=== PATIENT | female | born 1945 | race Hispanic/Latino ===

== ENCOUNTER 2024-09-17 21:44 | Emergency (ER) | payer OTHER ==
[2024-09-17] MEDS ORDERED: FAMOTIDINE 20 MG/2 ML VIAL IV ONE (22:25)
[2024-09-17] MEDS ORDERED: NA CHLORIDE 0.9% 500 ML ONE (22:25)
[2024-09-17 23:03] LABS: Absolute Monocytes 0.5 K/uL (0.1-1.3); Basophils % 0.2 % (0-1.3); Eosinophils % 0.2 % (0-4.4); Hematocrit 33.7 % (36.0-45.0); Hemoglobin 11.2 g/dL (12.0-15.0); Lymphocytes % 11.3 % (15.3-44.8); MCH 28.3 pg (27.0-35.0); MCHC 33.3 g/dL (32.0-36.0); MPV 9.4 fL (7.6-11.3); Monocytes % 6.3 % (3.3-12.3); Nucleated Red Blood Cells % 0.1 % (0-0); Platelets 379 thou/uL (152-406); RBC Red Blood Cell Count 3.96 M/uL (3.86-4.86); Red Cell Distribution Width 19.5 % (12.1-15.2)
--- NOTE | 2024-09-17 23:12 | RAD REPORT ---
EXAM: CT CHEST, ABDOMEN AND PELVIS WITHOUT CONTRAST CLINICAL INDICATION: Female, 79 years old. [facility] MAIN ABDOMINAL DISTENTION Bed Name: 13 TECHNIQUE: CT chest, abdomen and pelvis was performed, without IV contrast, as per department protoco l. Axial, sagittal and coronal reconstructions were obtained. One or more of the following dose reduction techniques were used: Automated exposure control, adjustment of the mA and/or kV according to the patient size, and/or iterative reconstruction. Unless otherwise specified, incidental findings do not require dedicated imaging follow-up. COMPARISON: No prior exam. FINDINGS: The lack of intravenous contrast limits the sensitivity of this exam for evaluation of solid visceral organs, vascular structures, and retroperitoneum. Chest: LOWER NECK/CHEST WALL: Visualized thyroid gland and soft tissues are normal. LUNGS AND AIRWAYS: Airways are clear. Dependent right basilar airspace opacification with air broncho grams. Subsegmental atelectasis at the left base with volume loss. PLEURA: Layering bilateral small effusions larger on the right. No pneumothorax. Hemidiaphragms are n ormally positioned. MEDIASTINUM AND LYMPH NODES: No mediastinal mass or fluid collection. Mildly prominent mediastinal ly mph nodes largest is pretracheal measuring 1.3 cm in short axis, nonspecific, and could be reactive. No bulky hilar adenopathy within limits of noncontrast evaluation. THORACIC AORTA: Normal caliber and configuration. PULMONARY ARTERIES: Normal caliber. HEART: Unremarkable. Abdomen/Pelvis LIVER: Normal in size and contour. No focal lesion. GALLBLADDER/BILE DUCTS: Status post cholecystectomy. PANCREAS: No mass, ductal dilation, or manfred-pancreatic fluid. SPLEEN: Normal size. No focal lesion. ADRENALS: Normal; no mass. KIDNEYS AND URETERS: Normal size and contour. No hydronephrosis. Nonobstructing bilateral lower pole calculi largest on the right measuring 4 mm. 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 Sequelae of midline laparotomy. Stomach is non-dilated. Small bowel dilation with air-fluid levels, with suspected transition point in the right lower quadrant, se e coronal image 44 series 303. Distal colonic diverticulosis with no colonic wall thickening or pericolonic inflammatory changes. PERITONEUM: No free fluid. Mild nonspecific mesenteric edema. LYMPH NODES: No lymphadenopathy. ABDOMINAL AORTA AND OTHER VESSELS: Normal caliber aorta and IVC. URINARY BLADDER: Normal contour. REPRODUCTIVE ORGANS: No pathologic process. MUSCULOSKELETAL: No acute or suspicious osseous abnormality. ADDITIONAL FINDINGS: Lobulated cystic lesion along the subcutaneous soft tissues of the upper back, m easuring 9.3 cm in greatest transverse dimension and 3.6 cm in thickness, could represent sebaceous cyst or seroma IMPRESSION: Segmental dilation of central abdominal small bowel with suspected transition point in the right lowe r quadrant, could relate to low-grade obstruction. Sequelae of midline laparotomy, with terminal colostomy and mucous fistula. Nonobstructing bilateral renal calculi largest measuring 4 mm. Bilateral pleural effusions larger on the right, with underlying right lower lobe airspace opacificat ion, favoring atelectasis, however superimposed pneumonia be difficult to exclude. Other incidental findings as above.
--- NOTE | 2024-09-17 23:14 | RAD REPORT ---
EXAM: CT Head Brain Wo Cont HISTORY: confusion COMPARISON: None TECHNIQUE: Multiple contiguous axial images were obtained for a CT of the brain without contrast. Sag ittal and coronal reformats were performed. One or more of the following dose reduction techniques were used: Automated exposure control, adjus tment of the mA and kV according to patient size, and iterative reconstruction. Unless otherwise specified, incidental findings do not require dedicated imaging follow-up. FINDINGS: No evidence of hydrocephalus, intracranial hemorrhage, or extra-axial fluid collection. Regions of encephalomalacia in the right anterior frontal, left temporoparietal, right anterior tempo ral pole, and right high parietal cortices with volume loss, favoring sequelae of remote ischemia. Other moderate periventricular and deep white matter chronic microvascular ischemic changes present. The calvarium is intact. The visualized paranasal sinuses and mastoid air cells are essentially clear . IMPRESSION: No evidence of acute intracranial abnormality. Multifocal encephalomalacia throughout the supratentorial series, favoring sequelae of remote ischemi a.
--- NOTE | 2024-09-17 23:15 | RAD REPORT ---
EXAMINATION: ONE VIEW CHEST XR CLINICAL INDICATION: Female, 79 years old.,AMS TECHNIQUE: Frontal chest projection is submitted. Examination is limited by patient positioning and t echnique. COMPARISON: No prior exam. FINDINGS: Bibasilar pleuroparenchymal opacities. No pneumothorax. The heart is normal in size. Mediastinal con tours are unremarkable. IMPRESSION: Bibasilar pleuroparenchymal opacities. Underlying pneumonia should be considered.
[2024-09-18 00:59] LABS: Albumin 2.1 g/dL (3.4-5.0); Albumin/Globulin Ratio 0.5 (1.1-1.8); Anion Gap 7.8 mEq/L (5.0-15.0); Bilirubin Total 0.5 mg/dL (0.2-1.0); Globulin 4.2 g/dL (2.3-3.5); Potassium 3.8 mEq/L (3.5-5.1); Protein, Total 6.3 g/dL (6.4-8.2); Thyroid Stimulating Hormone 0.933 uIU/mL (0.358-3.740)
--- NOTE | 2024-09-18 02:11 | ER ---
Nurse's Notes [facility] Name: Damaris Antoine Age: 79 yrs Sex: Female : 1945 Arrival Date: 09/17/2024 Time: 21:44 Bed 13 Private MD: Diagnosis: Partial small bowel obstruction, postoperative complication, divergent colostomy complication, moderate dehydration, acute on chronic renal insufficiency Presentation: 09/17 21:45 Chief complaint: EMS states: leaking colostomy bag, home health nurse has try changing ha1 it multiple times but it is still leaking. 21:45 Coronavirus screen: Client denies travel out of the [place] in the last 14 days. Ebola ha1 Screen: No symptoms or risks identified at this time. Initial Sepsis Screen: Does the patient meet any 2 criteria? No. Patient's initial sepsis screen is negative. Does the patient have a suspected source of infection? No. Patient's initial sepsis screen is negative. Risk Assessment: Do you want to hurt yourself or someone else? Patient reports no desire to harm self or others. Onset of symptoms was September 17, 2024. 21:45 Method Of Arrival: EMS: [facility] ha1 21:45 Acuity: BRITNEY 3 ha1 Historical: - Allergies: 21:45 Morphine; ha1 21:45 Codeine; ha1 21:45 Iodine; ha1 21:45 Aspirin; ha1 - PMHx: 21:45 Congestive heart failure; Atrial fibrillation; Chronic obstructive lung disease; ha1 Anemia; uterine cancer; - PSHx: 21:45 Colostomy (September 07, 2024); ha1 - Immunization history:: Adult Immunizations up to date. - Infectious Disease History:: Denies. - Social history:: Smoking status: Patient/guardian denies using tobacco, Stopped _ months ago 4. - Family history:: not pertinent. Screenin/15 01:58 [facility] ED Fall Risk Assessment (Adult) History of falling in the last 3 months, jb4 including since admission No falls in past 3 months (0 pts) Confusion or Disorientation No (0 pts) Intoxicated or Sedated No (0 pts) Impaired Gait Yes (1 pt) Mobility Assist Device Used Yes (1 pt) Altered Elimination Yes (1 pt) Score/Fall Risk Level 3 or more points = High Risk Oriented to surroundings, Maintained a safe environment. Abuse screen: Denies threats or abuse. Nutritional screening: No deficits noted. Tuberculosis screening: No symptoms or risk factors identified. Assessment: 09/17 22:30 General: Appears in no apparent distress. comfortable, Behavior is calm, cooperative, jb4 appropriate for age. Pain: Complains of pain in abdomen Pain does not radiate. Pain currently is 8 out of 10 on a pain scale. Neuro: Level of Consciousness is awake, alert, obeys commands, Oriented to person, place, time, situation. Cardiovascular: Patient's skin is warm and dry. Respiratory: Airway is patent Respiratory effort is even, unlabored, Respiratory pattern is regular, symmetrical. GI: Abdomen is distended, obese, Colostomy site is reddened. Ostomy appliance is not intact. Abd is soft and non tender X 4 quads. surgical site appears intact with no s/s of infection noted. Derm: Skin is intact, Skin is pink, warm \T\ dry. Musculoskeletal: Circulation, motion, and sensation intact. Range of motion: intact in all extremities. 23:30 Reassessment: Patient appears in no apparent distress at this time. Patient and/or jb4 family updated on plan of care and expected duration. Pain level reassessed. Patient is alert, oriented x 3, equal unlabored respirations, skin warm/dry/pink. 09/18 00:28 Reassessment: Patient appears in no apparent distress at this time. Patient and/or jb4 family updated on plan of care and expected duration. Pain level reassessed. Patient is alert, oriented x 3, equal unlabored respirations, skin warm/dry/pink. 00:40 Reassessment: given ice chips per ER physicians request. jb4 01:52 Reassessment: Patient appears in no apparent distress at this time. Patient and/or jb4 family updated on plan of care and expected duration. Pain level reassessed. Patient is alert, oriented x 3, equal unlabored respirations, skin warm/dry/pink. colostomy appliance replaced, pt had pulled off prior appliance. 03:00 Reassessment: Patient appears in no apparent distress at this time. Patient and/or jb4 family updated on plan of care and expected duration. Pain level reassessed. Patient is alert, oriented x 3, equal unlabored respirations, skin warm/dry/pink. Colostomy remains in place. Vital Signs: 09/17 21:45 BP 140 / 84; Pulse 85; Resp 17 S; Temp 98.1(O); Pulse Ox 99% on 2 lpm NC; Weight 63.5 ha1 kg; Height 5 ft. 0 in. ; 23:22 BP 117 / 92; Pulse 71; Resp 16; Pulse Ox 100% on R/A; jb4 09/18 00:28 BP 102 / 50; Pulse 89; Resp 17; Pulse Ox 100% on R/A; jb4 01:52 BP 112 / 56; Pulse 89; Resp 16; Pulse Ox 95% on 2 lpm NC; jb4 03:00 BP 99 / 63; Pulse 101; Resp 20; Pulse Ox 99% on R/A; jb4 09/17 21:45 Body Mass Index 27.34 (63.50 kg, 152.4 cm) ha1 Shayna Coma Score: 00:43 Eye Response: spontaneous(4). Motor Response: obeys commands(6). Verbal Response: sp4 oriented(5). Total: 15. ED Course: 09/17 21:45 Patient arrived in ED. jj6 21:59 Pasquale Alcazar MD is Attending Physician. sp4 22:02 Triage completed. ha1 22:19 CT Head Brain wo Cont In Process Unspecified. EDMS 22:19 CT Chest Abdomen Pelvis W/O Contrast In Process Unspecified. EDMS 22:29 Chest Single View XRAY In Process Unspecified. EDMS 22:43 Initial lab(s) drawn, by ut, sent to lab. Inserted saline lock: 20 gauge in left rk3 antecubital area, using aseptic technique. Blood collected. Flushed with 10 mL NS. 09/18 00:45 INITIATED TRANSFER WITH MARVEL MERLOS \T\ 0045. [facility] 01:58 Patient has correct armband on for positive identification. Bed in low position. Call jb4 light in reach. Side rails up X 1. Provided Education on: plan of care. 02:00 PT WAS ACCEPTED BY DR. CHEN \T\ 0200. PT WILL GO TO THE ER AT [facility]. [facility] TO TRANSFER PT ONCE NURSE TO NURSE IS COMPLETE. NUMBER FOR NURSE TO NURSE REPORT [phone]. 03:00 No provider procedures requiring assistance completed. Patient transferred, IV remains jb4 in place. Administered Medications: 09/17 23:01 Drug: Famotidine IVP 20 mg IVP once; dilute with 10 mL 0.9% NaCl; give over 2 minutes jb4 Route: IVP; Site: right antecubital; 23:30 Follow up: Response: No adverse reaction jb4 23:01 Drug: NS 0.9% IV 500 ml 500 ml IV at 1 bolus once; to be given as a bolus over 30 jb4 minutes Volume: 500 ml; Route: IV; Rate: 1 bolus; Site: right antecubital; 23:31 Follow up: Response: No adverse reaction; IV Status: Completed infusion; IV Intake: jb4 500ml 09/18 02:33 Drug: Ativan IVP 1 mg IVP once Route: IVP; Site: right antecubital; jb4 03:12 Follow up: Response: No adverse reaction; Marked relief of symptoms jb4 02:33 Drug: Rocephin - Rocephin (cefTRIAXone) IVPB 1 grams IVPB once over 30 mins; (mix in 50 jb4 mL NS) Route: IVPB; Infused Over: 30 mins; Site: right antecubital; 03:03 Follow up: Response: No adverse reaction; IV Status: Completed infusion; IV Intake: [id number] 02:38 Drug: metroNIDAZOLE IVPB 500 mg 100 ml IVPB at 200 ml/hr once over 30 mins Volume: 100 jb4 ml; Route: IVPB; Rate: 200 ml/hr; Infused Over: 30 mins; Site: right antecubital; 03:08 Follow up: Response: No adverse reaction; IV Status: Completed infusion; IV Intake: jb4 100ml 03:12 Drug: D5-1/2 NS IV 1000 ml IV at 125 ml/hr continuous Route: IV; Rate: 125 ml/hr; Site: jb4 right antecubital; 03:13 Follow up: Response: No adverse reaction; IV Status: Infusion continued upon transfer jb4 Medication: 00:28 VIS not applicable for this client. jb4 Intake: 09/17 23:31 IV: 500ml; Total: 500ml. jb4 09/18 03:03 IV: 50ml; Total: 550ml. jb4 03:08 IV: 100ml; Total: 650ml. jb4 Outcome: 02:10 ER care complete, transfer ordered by MD. sp4 03:00 Transferred by ground EMS to [facility], Transfer form jb4 completed. X-rays sent w/ patient. 03:00 Condition: stable 03:00 Discharge instructions given to patient, family, Instructed on the need for transfer, Demonstrated understanding of instructions, 03:23 Patient left the ED. jb4 Signatures: Dispatcher [employer] EDMS Rodolfo Huynh RN RN jb4 Jasmin Heardj6 Linda Coyne RN RN ha1 Pasquale Alcazar MD MD sp4 Francy Smith [facility] Thom Juárez rk3 Corrections: (The following items were deleted from the chart) 01:53 01:52 Reassessment: Patient appears in no apparent distress at this time. Patient jb4 and/or family updated on plan of care and expected duration. Pain level reassessed. Patient is alert, oriented x 3, equal unlabored respirations, skin warm/dry/pink. jb4 03:22 03:00 Reassessment: Patient appears in no apparent distress at this time. Patient jb4 and/or family updated on plan of care and expected duration. Pain level reassessed. Patient is alert, oriented x 3, equal unlabored respirations, skin warm/dry/pink. jb4
--- NOTE | 2024-09-18 02:11 | EDPHYS ---
Physician Documentation [facility] Name: Damaris Antoine Age: 79 yrs Sex: Female : 1945 Arrival Date: 09/17/2024 Time: 21:44 Bed 13 Private MD: ED Physician Pasquale Alcazar HPI: 09/18 00:23 This 79 yrs old Female presents to ER via EMS with complaints of Abdominal sp4 Pain. 00:43 79-year-old female presents with complaint of leaking colostomy. Patient had partial sp4 colectomy with diversion colostomy at [facility] 09/07/[address] Madelyn Arango. Patient was discharged home 09/16/2024. Patient's relatives reported that colostomy bag fell off and they were not able to apply another one. Initial presentation is for colostomy bag change. Patient's family additionally reports the patient has increased output from the colostomy, patient has been increasingly confused and unwell. Reports generalized weakness. Also they report that patient is desiring to enter outpatient rehabilitation. . Historical: - Allergies: 09/17 21:45 Morphine; ha1 21:45 Codeine; ha1 21:45 Iodine; ha1 21:45 Aspirin; ha1 - PMHx: 21:45 Congestive heart failure; Atrial fibrillation; Chronic obstructive lung disease; ha1 Anemia; uterine cancer; - PSHx: 21:45 Colostomy (September 07, 2024); ha1 - Immunization history:: Adult Immunizations up to date. - Infectious Disease History:: Denies. - Social history:: Smoking status: Patient/guardian denies using tobacco, Stopped _ months ago 4. - Family history:: not pertinent. ROS: 09/18 00:43 Constitutional: Negative for fever, chills, and weight loss, positive for confusion sp4 positive generalized weakness positive leaking colostomy positive bleeding from colostomy, positive increase colostomy output All other systems are negative, Exam: 00:43 Constitutional: Patient is frail elderly female, pale appearing, left lower quadrant sp4 diversion colostomy with fresh postoperative incisions, also enterocutaneous fistula just below colostomy. Head/Face: Normocephalic, atraumatic. Eyes: Pupils equal round and reactive to light, extra-ocular motions intact. Lids and lashes normal. Conjunctiva and sclera are not injected. Cornea within normal limits. Periorbital areas with no swelling, redness, or edema. ENT: Nares patent. No nasal discharge, no septal abnormalities noted. Tympanic membranes are normal and external auditory canals are clear. Oropharynx with no redness, swelling, or masses, exudates, or evidence of obstruction, uvula midline. Mucous membranes moist. Neck: Trachea midline, no thyromegaly or masses palpated, and no cervical lymphadenopathy. Supple, full range of motion without nuchal rigidity, or vertebral point tenderness. Chest/axilla: Normal chest wall appearance and motion. Nontender with no deformity. No lesions are appreciated. Cardiovascular: Regular rate and rhythm with a normal S1 and S2. No gallops, murmurs, or rubs. Normal PMI, no JVD. No pulse deficits. Respiratory: Lungs have equal breath sounds bilaterally, clear to auscultation and percussion. No rales, rhonchi or wheezes noted. No increased work of breathing, no retractions or nasal flaring. Abdomen/GI: Soft, with normal bowel sounds. No distension or tympany. No guarding or rebound. Fresh postoperative midline incision with luis in place, left lower quadrant diversion colostomy with greenish output, small amount of bleeding from the postop suturing around the stoma, no signs of wound dehiscence. Back: No spinal tenderness. No costovertebral tenderness. Skin: Warm, dry with normal turgor. Normal color with no rashes, no lesions, and no evidence of cellulitis. MS/ Extremity: Pulses equal, no cyanosis. Neurovascular intact. Full, normal range of motion. Neuro: Awake and alert, GCS 15, oriented to person, place, time, and situation. Cranial nerves II-XII grossly intact. Motor strength 5/5 in all extremities. Sensory grossly intact. Psych: Awake, alert, with orientation to person, place and time. Behavior, mood, and affect are within normal limits Vital Signs: 09/17 21:45 BP 140 / 84; Pulse 85; Resp 17 S; Temp 98.1(O); Pulse Ox 99% on 2 lpm NC; Weight 63.5 ha1 kg; Height 5 ft. 0 in. ; 23:22 BP 117 / 92; Pulse 71; Resp 16; Pulse Ox 100% on R/A; jb4 09/18 00:28 BP 102 / 50; Pulse 89; Resp 17; Pulse Ox 100% on R/A; jb4 01:52 BP 112 / 56; Pulse 89; Resp 16; Pulse Ox 95% on 2 lpm NC; jb4 03:00 BP 99 / 63; Pulse 101; Resp 20; Pulse Ox 99% on R/A; jb4 09/17 21:45 Body Mass Index 27.34 (63.50 kg, 152.4 cm) ha1 Shayna Coma Score: 00:43 Eye Response: spontaneous(4). Motor Response: obeys commands(6). Verbal Response: sp4 oriented(5). Total: 15. MDM: 00:47 Differential diagnosis: gastritis, GI Bleed, Hepatitis, Irritable bowel syndrome, sp4 non-specific abd pain, pancreatitis. Data reviewed: vital signs, nurses notes, EMS record, lab test result(s), radiologic studies, CT scan. Consideration of Admission/Observation Patient was admitted/placed on observation. ED course: I spoke with Dr. Madelyn Arango at [phone] Dr. Arango states that patient is [address] reveals signs of partial small bowel obstruction. Dr. Arango requests transfer to [facility] for further assessment and care. Family was informed that the best thing to do would be transfer to [facility] if their capacity permits transfer. At this time awaiting on transfer.. 02:10 Medical Screening Exam initiated sp4 02:11 ED course: EXAMINATION: ONE VIEW CHEST XR CLINICAL INDICATION: Female, 79 years sp4 old.,AMS TECHNIQUE: Frontal chest projection is submitted. Examination is limited by patient positioning and technique. COMPARISON: No prior exam. FINDINGS: Bibasilar pleuroparenchymal opacities. No pneumothorax. The heart is normal in size. Mediastinal contours are unremarkable. IMPRESSION: Bibasilar pleuroparenchymal opacities. Underlying pneumonia should be considered. . ED course: CT - MUSCULOSKELETAL: No acute or suspicious osseous abnormality. ADDITIONAL FINDINGS: Lobulated cystic lesion along the subcutaneous soft tissues of the upper back, measuring 9.3 cm in greatest transverse dimension and 3.6 cm in thickness, could represent sebaceous cyst or seroma IMPRESSION: Segmental dilation of central abdominal small bowel with suspected transition point in the right lower quadrant, could relate to low-grade obstruction. Sequelae of midline laparotomy, with terminal colostomy and mucous fistula. Non obstructing bilateral renal calculi largest measuring 4 mm. Bilateral pleural effusions larger on the right, with underlying right lower lobe airspace opacification, favoring atelectasis, however superimposed pneumonia be difficult to exclude. Other incidental findings as above. . ED course: EXAM: CT Head Brain Wo Cont HISTORY: confusion COMPARISON: None TECHNIQUE: Multiple contiguous axial images were obtained for a CT of the brain without contrast. Sagittal and coronal reformats were performed. One or more of the following dose reduction techniques were used: Automated exposure control, adjustment of the mA and kV according to patient size, and iterative reconstruction. Unless otherwise specified, incidental findings do not require dedicated imaging follow-up. FINDINGS: No evidence of hydrocephalus, intracranial hemorrhage, or extra-axial fluid collection. Regions of encephalomalacia in the right anterior frontal, left temporoparietal, right anterior temporal pole, and right high parietal cortices with volume loss, favoring sequelae of remote ischemia. Other moderate periventricular and deep white matter chronic microvascular ischemic changes present. The calvarium is intact. The visualized paranasal sinuses and mastoid air cells are essentially clear. IMPRESSION: No evidence of acute intracranial abnormality. Multifocal encephalomalacia throughout the supratentorial series, favoring sequelae of remote ischemia. . 09/17 22:01 Order name: CBC with Diff; Complete Time: 00:12 09/17 22:01 Order name: CMP; Complete Time: 02:01 09/17 22:01 Order name: Lipase; Complete Time: 02:01 09/17 22:02 Order name: CRP; Complete Time: 02:01 09/17 22:02 Order name: TSH; Complete Time: 02:01 09/17 22:02 Order name: T4 Free; Complete Time: 02:01 4 09/17 22:02 Order name: CT Head Brain wo Cont; Complete Time: 00:12 09/17 22:02 Order name: Chest Single View XRAY; Complete Time: 00:12 09/17 22:05 Order name: CT Chest Abdomen Pelvis W/O Contrast; Complete Time: 00:12 09/17 22:01 Order name: IV Saline Lock; Complete Time: 22:44 09/17 22:01 Order name: Labs collected and sent; Complete Time: 22:44 sp4 09/17 22:01 Order name: Misc. Order: Change colostomy; Complete Time: 23:41 sp4 09/17 23:44 Order name: Labs - recollect needed: light green ; Complete Time: 00:27 kmf Administered Medications: 09/17 23:01 Drug: Famotidine IVP 20 mg IVP once; dilute with 10 mL 0.9% NaCl; give over 2 minutes jb4 Route: IVP; Site: right antecubital; 23:30 Follow up: Response: No adverse reaction jb4 23:01 Drug: NS 0.9% IV 500 ml 500 ml IV at 1 bolus once; to be given as a bolus over 30 jb4 minutes Volume: 500 ml; Route: IV; Rate: 1 bolus; Site: right antecubital; 23:31 Follow up: Response: No adverse reaction; IV Status: Completed infusion; IV Intake: jb4 500ml 09/18 02:33 Drug: Ativan IVP 1 mg IVP once Route: IVP; Site: right antecubital; jb4 03:12 Follow up: Response: No adverse reaction; Marked relief of symptoms jb4 02:33 Drug: Rocephin - Rocephin (cefTRIAXone) IVPB 1 grams IVPB once over 30 mins; (mix in 50 jb4 mL NS) Route: IVPB; Infused Over: 30 mins; Site: right antecubital; 03:03 Follow up: Response: No adverse reaction; IV Status: Completed infusion; IV Intake: [id number] 02:38 Drug: metroNIDAZOLE IVPB 500 mg 100 ml IVPB at 200 ml/hr once over 30 mins Volume: 100 jb4 ml; Route: IVPB; Rate: 200 ml/hr; Infused Over: 30 mins; Site: right antecubital; 03:08 Follow up: Response: No adverse reaction; IV Status: Completed infusion; IV Intake: jb4 100ml 03:12 Drug: D5-1/2 NS IV 1000 ml IV at 125 ml/hr continuous Route: IV; Rate: 125 ml/hr; Site: [facility] right antecubital; 03:13 Follow up: Response: No adverse reaction; IV Status: Infusion continued upon transfer jb4 Disposition Summary: 09/18/24 02:10 Transfer Ordered Notes: Transfer Location: [facility] sp4 Reason: Higher level of care sp4 Condition: Stable sp4 Problem: new sp4 Symptoms: have improved sp4 Accepting Physician: Dr. Zhao General Surgery (09/18/24 03:23) jb4 Diagnosis - Partial small bowel obstruction, postoperative complication, divergent colostomy sp4 complication, moderate dehydration, acute on chronic renal insufficiency Forms: - Medication Reconciliation Form sp4 - SBAR form sp4 Signatures: Dispatcher [employer] EDRodolfo Luong RN RN jb4 Linda Coyne RN RN ha1 Pasquale Alcazar MD MD sp4 Francy Smith [facility] Corrections: (The following items were deleted from the chart) 09/17 22:02 22:02 Chest Single View+[email or web address] ordered. [facility]VA 09/18 03:23 02:10 Dr. Zhao General Surgery sp4 jb4
[2024-09-18] MEDS ORDERED: CEFTRIAXONE 1000 MG/VIAL ONE (02:19)
[2024-09-18] MEDS ORDERED: LORazepam 2 MG/ML VIAL ONE (02:19)
[2024-09-18] MEDS ORDERED: METRONIDAZOLE 500mg IVPB 500 MG/100 ML BAG IV ONE (02:20)
[2024-09-18] MEDS ORDERED: D5 0.45 NS 1,000 ML IV ONE (02:20)
[2024-09-18] MEDS ORDERED: NA CHLORIDE 0.9% 50 ML ONE (02:20)
[2024-09-18 03:28] VITALS: TEMP 98.1
[2024-09-18 03:35] VITALS: BP 99/63; O2SAT 99
== END 2024-09-18 03:23 | disposition short-term general hospital (02) ==
LOC: ER 21:44
DX: K91.31 Postprocedural partial intestinal obstruction (principal); E86.0 Dehydration; N18.9 Chronic kidney disease, unspecified; J44.9 Chronic obstructive pulmonary disease, unspecified; I48.91 Unspecified atrial fibrillation; I50.9 Heart failure, unspecified
CPT/HCPCS: 85025; 36415; 84443; 84439; 83690; 80053; 86140; 70450; 71250; 74176; 71045; J7799; J7040; J0696